=== PATIENT | female | born 1990 | race Caucasian/White ===

== ENCOUNTER 2022-05-09 11:40 | Emergency (ER) | payer OTHER ==
[2022-05-09] MEDS ORDERED: ALBUTEROL SO4 2.5/IPRATROPIUM 0.5 INH SOL 3 ML VIAL.NEB. NEB ONE ×2 (12:03→12:05)
[2022-05-09] MEDS ORDERED: ACETAMINOPHEN 325 MG TABLET (FP) ONE (12:03)
[2022-05-09] MEDS ORDERED: ACETAMINOPHEN 500 MG TABLET (FP) PO ONE (12:05)
[2022-05-09 12:12] VITALS: BP 125/82; PULSE 113; TEMP 100.3; BMI 33.1
== END 2022-05-09 14:22 | disposition home or self-care (01) ==
LOC: JER 11:40
PROC: 3E0F7GC Introduction of Other Therapeutic Substance into Respiratory Tract, Via Natural or Artificial Opening (ICD-10-PCS; principal; 2022-05-09)
DX: J06.9 Acute upper respiratory infection, unspecified (principal); R05.1 Acute cough; R50.9 Fever, unspecified; J45.21 Mild intermittent asthma with (acute) exacerbation
CPT/HCPCS: 0241U-QW; 71046-TC-FY; 99284-25